=== PATIENT | male | born 1990 | race Two or more races ===

== ENCOUNTER 2021-09-05 18:27 | Emergency (ER) | payer OTHER ==
[~2021-09-05] VITALS: Ht 177.8 cm; Wt 93.2 kg
[2021-09-05 18:42] VITALS: BP 140/60
[2021-09-05] MEDS ORDERED: NIRM1TAB PO (19:36)
== END 2021-09-05 19:43 | disposition home or self-care (01) ==
LOC: ER 18:28
DX: U07.1 COVID-19 (principal); J02.9 Acute pharyngitis, unspecified; R50.9 Fever, unspecified; Z72.89 Other problems related to lifestyle; Z79.899 Other long term (current) drug therapy
CPT/HCPCS: 87635; 99283; C9803